=== PATIENT | female | born 1940 | race Caucasian/White ===

== ENCOUNTER 2022-01-23 16:30 | Inpatient (IN) | payer OTHER ==
[~2022-01-23] VITALS: Ht 152.4 cm; Wt 52.2 kg
[2022-01-23] MEDS ORDERED: LEVODOPA25 GM (17:04)
[2022-01-23] MEDS ORDERED: TOPROL XL50 M1 (17:04)
[2022-01-23] MEDS ORDERED: CHILDREN'S ASPI81 MG (17:05)
[2022-01-23] MEDS ORDERED: PAROXETINE7.5 MG (17:05)
[2022-01-23] MEDS ORDERED: COZAAR100 MG (17:05)
[2022-01-25] MEDS ORDERED: ROSUVASTATIN CA40 MG (16:33)
[2022-01-25] MEDS ORDERED: APETIGEN P12.5 MG/15 (16:33)
[2022-01-25] MEDS ORDERED: PAROXETINE HCL30 MG (16:34)
[2022-01-25] MEDS ORDERED: PRAVASTATIN SOD40 MG (16:34)
[2022-01-25] MEDS ORDERED: CARBIDOPA-LEVO1 EA11 (16:34)
[2022-01-25] MEDS ORDERED: METOPROLOL TART50 MG (16:34)
[2022-01-25] MEDS ORDERED: NAPROXEN500 MG (16:34)
[2022-01-25] MEDS ORDERED: ALENDRONATE SOD70 MG (16:34)
== END 2022-02-07 15:26 | disposition expired | DRG 682 ==
LOC: ER 16:30 → SEC-K 01-24 09:29 → MEDJ 01-24 09:29
PROVIDERS: ADMIT Internal Medicine; ATTEND Internal Medicine
PROC: 3E0F7SF Introduction of Other Gas into Respiratory Tract, Via Natural or Artificial Opening (ICD-10-PCS; principal; 2022-01-24)
PROC: 4A12X4Z Monitoring of Cardiac Electrical Activity, External Approach (ICD-10-PCS; 2022-01-24)
PROC: 02HV33Z Insertion of Infusion Device into Superior Vena Cava, Percutaneous Approach (ICD-10-PCS; 2022-01-24)
PROC: 30243N1 Transfusion of Nonautologous Red Blood Cells into Central Vein, Percutaneous Approach (ICD-10-PCS; 2022-02-03)
DX: N17.8 Other acute kidney failure (principal); J18.1 Lobar pneumonia, unspecified organism; A41.01 Sepsis due to Methicillin susceptible Staphylococcus aureus; R65.21 Severe sepsis with septic shock; N39.0 Urinary tract infection, site not specified; E87.2 Acidosis; D62 Acute posthemorrhagic anemia; B96.29 Other Escherichia coli [E. coli] as the cause of diseases classified elsewhere; L89.152 Pressure ulcer of sacral region, stage 2; I11.9 Hypertensive heart disease without heart failure; F50.89 Other specified eating disorder; I25.10 Atherosclerotic heart disease of native coronary artery without angina pectoris; I48.0 Paroxysmal atrial fibrillation; Z95.2 Presence of prosthetic heart valve; Z66 Do not resuscitate; Z78.1 Physical restraint status